=== PATIENT | female | born 1945 | race Caucasian/White ===

== ENCOUNTER 2017-06-18 22:17 | Emergency (ER) | payer OTHER, MEDICARE ==
[~2017-06-18] VITALS: Ht 167.6 cm; Wt 78.3 kg
[~2017-06-18 22:17] MED LIST: ASPIRIN325 MG PO; CLARITIN-D 21 TABLET PO; CRESTOR PO; HYDROCHLOROTHIAZIDE PO; K-DUR20 MEQ PO; K-Dur PO; METFORMIN HCL PO; NITROGLYCERIN SL; PANTOPRAZOLE PO; PAXIL; PAXIL30 MG PO; PLAVIX; PLAVIX75 MG PO; RANEXA; RANEXA500 MG PO; SYNTHROID PO; ZESTRIL PO
[2017-06-19] MEDS ORDERED: PERCOCET 5/31 TABLET PO (01:49)
[2017-06-19 02:01] VITALS: BP 122/78
== END 2017-06-19 02:00 | disposition home or self-care (01) ==
LOC: EME 22:17
PROC: 2W38X1Z Immobilization of Right Upper Extremity using Splint (ICD-10-PCS; principal; 2017-06-18)
DX: S52.101A Unspecified fracture of upper end of right radius, initial encounter for closed fracture (principal); M54.5 Low back pain; W16.212A Fall in (into) filled bathtub causing other injury, initial encounter; Y93.E1 Activity, personal bathing and showering; E11.9 Type 2 diabetes mellitus without complications; I10 Essential (primary) hypertension; E78.5 Hyperlipidemia, unspecified; Z86.73 Personal history of transient ischemic attack (TIA), and cerebral infarction without residual deficits; Z95.5 Presence of coronary angioplasty implant and graft; Z79.84 Long term (current) use of oral hypoglycemic drugs; Z79.82 Long term (current) use of aspirin; Z79.899 Other long term (current) drug therapy
CPT/HCPCS: 70450; 72125; 73030; 73080; 74176; 99281; 99285